=== PATIENT | male | born 1965 | race Caucasian/White ===

== ENCOUNTER 2017-11-04 12:40 | Emergency (ER) | payer OTHER ==
[~2017-11-04] VITALS: Ht 175.3 cm; Wt 83.9 kg
--- NOTE | ~2017-11-04 | EKG ---
[address] [address] [place] [address] ELECTROCARDIOGRAM REPORT Name: YILANETTE R Room [facility]: [id number] Admission: 11/04/17 Attend Phys: Discharge: 11/04/17 Date of : 65 Report #: [id number] THIS REPORT FOR: //name// [facility] ED Test Date: 2017-11-04 Test Time: 12:45:56 Pat Name: LANETTE RICHMOND Department: Room: Gender: [employer]: [facility] : 1965 Requested By: Claudy Juarez Order Number: [id number] MD: Geoffrey Dimas Measurements Intervals Bowler Rate: 95 P: 62 FL: 149 QRS: 20 QRSD: 84 T: 31 QT: 339 QTc: 426 Interpretive Statements Sinus rhythm Abnormal R-wave progression, early transition No previous ECG available for comparison Electronically Signed On 11-05-2017 9:40:10 CDT by Geoffrey Dimas [email or web address] <ELECTRONICALLY SIGNED> By: Geoffrey Dimas MD, [facility] 11/05/17 0940 1245 1245 Geoffrey Dimas MD, FACC /EPI
[2017-11-04] MEDS ORDERED: FISH OIL 1,001000 M2 PO (12:48)
[2017-11-04] MEDS ORDERED: CLARITIN10 MG PO (12:48)
[2017-11-04] MEDS ORDERED: ADVAIR HFA 230M12 GM INH (12:48)
[2017-11-04 14:08] LABS: EOSINOPHILS 3.7 % (0.0-3.0); HEMATOCRIT 42.5 % (42.0-52.0); HEMOGLOBIN 14.9 gm/dL (14.0-18.0); LYMPHOCYTES 22.7 % (24.0-44.0); MCHC 35.1 g/dL (28.0-37.0); MCV 88.4 fL (80.0-100.0); MONOCYTES 7.1 % (1.0-8.0); PLATELET COUNT 162 thou/uL (150-400); POLYS 65.5 % (36.0-66.0); RBC 4.81 mil/uL (4.50-6.00); RDW 12.9 % (10.5-14.5); WBC 4.5 thou/uL (4.0-11.0)
[2017-11-04 14:11] LABS: CALCIUM 8.9 mg/dL (8.5-10.1); CREATININE 1.2 mg/dL (0.7-1.3); POTASSIUM 3.8 mmol/L (3.5-5.1)
[2017-11-04 14:17] LABS: ALBUMIN 3.6 g/dL (3.4-5.0); MAGNESIUM 1.8 mg/dL (1.8-2.4); TOTAL BILIRUBIN 0.8 mg/dL (<0.1-1.0)
[2017-11-04 14:56] LABS: TOTAL PROTEIN 7.4 g/dL (6.4-8.2)
[2017-11-04 15:00] VITALS: BP 132/82
== END 2017-11-04 15:27 | disposition home or self-care (01) ==
LOC: ER 12:40
PROVIDERS: Emergency Medicine; Nurse Practitioner Family
DX: R00.2 Palpitations (principal); I10 Essential (primary) hypertension; J45.909 Unspecified asthma, uncomplicated; Z88.0 Allergy status to penicillin